=== PATIENT | female | born 1940 | race Caucasian/White ===

== ENCOUNTER 2022-08-04 08:37 | Outpatient (CLI) | payer MEDICARE, SELFPAY ==
--- NOTE | ~2022-08-04 | MMUS_ITS ---
EXAMINATION: MM diagnostic vianey LT w yocasta, US breast LT limited HISTORY: Palpable abnormality left breast, upper outer quadrant TECHNIQUE: ML, MLO and CC 3-D tomosynthesis images of the left breast were performed and synthetic 2- D images were generated. CAD analysis was submitted and interpreted. High resolution targeted left br east ultrasound at area of clinical complaint was performed. COMPARISON: None BREAST PARENCHYMAL COMPOSITION: There are scattered areas of fibroglandular density. FINDINGS: MAMMOGRAPHIC FINDINGS: Prominent calcified microhematoma in the upper outer quadrant of the left breast. Occasional addition al benign calcifications. No suspicious mass, architectural distortion, malignant calcification, skin thickening or retraction is detected. ULTRASOUND: At the area of clinical complaint of left breast lump at 2:00 4 cm from the nipple no suspicious abno rmality is identified. At 2:00 7 cm from the nipple there is a prominent calcification corresponding to the left upper outer quadrant benign calcified. IMPRESSION: 1. Benign finding 2. Routine annual mammographic screening is recommended BI-RADS Category 2: Benign finding(s). Reviewed, dictated and finalized at location A. IMPRESSION: 1. Benign finding 2. Routine annual mammographic screening is recommended BI-RADS Category 2: Benign finding(s).
== END 2022-08-04 08:38 | disposition home or self-care (01) ==
PROVIDERS: PCP Family Medicine; Visit Provider Family Medicine
DX: N63.25 Unspecified lump in the left breast, overlapping quadrants (principal)
CPT/HCPCS: 76642; 77061; 77065; G0279